=== PATIENT | female | born 1970 | race Caucasian/White ===

== ENCOUNTER → 2017-04-14 | Day surgery (SDC) | payer OTHER ==
[~2017-04-14] VITALS: Ht 175.3 cm; Wt 76.3 kg
[~2017-04-14] MED LIST: AMPH20CA5 PO; CeFAZolin 2 Gm/50 mL D5W Duplex Bag IV ONE; CeFAZolin Inj 2 GM in IV Premix 1 EACH IV ONE; FLUT16SP NS; HYDR-4003 PO; KETO120S3 TP; Lactated Ringer's 1,000 ML IV ONE; Lactated Ringer's 1,000 ML IV SCH; ONDA-53 PO; TRAZ-115 PO
[2017-04-14 14:48] VITALS: BP 124/82; PULSE 88; RESP 16; O2SAT 96
[2017-04-14] MEDS: fentaNYL-PF 50 mCg/mL 2 mL Inj ONE ×4 (15:41→17:30)
== END | disposition home or self-care (01) ==
LOC: SAS 14:23
PROVIDERS: ATTEND Orthopaedic Surgery
DX: S52.571A Other intraarticular fracture of lower end of right radius, initial encounter for closed fracture (principal); Z53.8 Procedure and treatment not carried out for other reasons
CPT/HCPCS: J3010; J7120

== ENCOUNTER → 2017-04-15 | Day surgery (SDC) | payer OTHER ==
[2017-04-15] VITALS (14 sets, daily range): BP systolic 86–136; BP diastolic 43–95; PULSE 57–91; RESP 9–16; O2SAT 91–100
[~2017-04-15] VITALS: Ht 175.3 cm; Wt 76.3 kg
[~2017-04-15] MED LIST changes: +Atropine 0.4 mg/mL Inj IVPUSH PRN; +Bupivacaine-MPF 0.5% 30 mL Inj INFILTRATE ONE; -CeFAZolin Inj 2 GM in IV Premix 1 EACH IV ONE; +Dexamethasone 4 mg/mL Inj ONE; +EPHEDrine Sulfate 50 mg/mL Inj IVPUSH PRN; +Glycopyrrolate 0.2 MG/ML 1mL Inj ONE; +HYDROmorphone 1 mg/mL Inj IVPUSH PRN; +HYDROmorphone 1 mg/mL Inj ONE; +Labetalol 5 mg/mL 20 mL Inj IV PRN; +Lactated Ringer's 500 ML IV PRN; +MetoCLOpramide 5 mg/mL 2 mL Inj IVPUSH PRN; +MetoCLOpramide 5 mg/mL 2 mL Inj ONE; +Neostigmine 1 mg/mL 10 mL Inj ONE; +Ondansetron 2 mg/mL 2 mL Inj IVPUSH PRN; +Ondansetron 2 mg/mL 2 mL Inj ONE; +Phenylephrine 10,000 mCg/mL Inj IVPUSH PRN; +Phenylephrine 10,000 mCg/mL Inj ONE; +Propofol 10,000 mCg/mL 20 mL Inj ONE; +Rocuronium 10 mg/mL 5 mL Inj ONE; +fentaNYL-PF 50 mCg/mL 2 mL Inj IVPUSH PRN; +fentaNYL-PF 50 mCg/mL 2 mL Inj ONE; +oxyCODONE-Acetamin 5-325 mg Tablet PO PRN
--- NOTE | 2017-04-15 13:40 | PCM.HPANE ---
Patient Data Surgeon Admitting Provider: Attending Provider:Ted Linares MD Primary Care Physician:Cal Black MD Other Provider:Ethel Jacques Anesthesia Reason for Visit Orif Rt Distal Radius Ht/WT & BMI Height (Feet): 5 Height (Inches): 9 Weight (Kilograms): 76.3 Body Mass Index 24.00 Allergies Coded Allergies: No Known Allergies (Verified , 06/26/04) Past Anesthesia History Anesthesia History: Denies:: Abnormal Airway, Anesthesia Reactions, Difficult Intubation, Fam Anesthesia Reaction (daughter had reaction to ketamine- psychological response), Malignant Hyperthermia Diabetes History Hx Diabetes?: No MRSA MRSA: No Medications Home Meds Incl Beta Nikki: No Reported Medications Trazodone 50 Mg [id number] Mg PO HS Ref 0 04/12/17 Ondansetron 4 Mg Tablet4 Mg PO Q6H PRN For Nausea 04/12/17 Ketoconazole 120 Ml [id number] Ml TP PRN scalp itching 04/12/17 Hydrocodone-Acetaminophen 5-325 mg 1 Each Tablet1 Tablet PO Q6H PRN For Pain Ref 0 04/12/17 Fluticasone Propionate (Fluticasone Propionate Nasal)16 Gm [place].susp1 [place] NS BID #16 GM Ref 0 04/12/17 Dextroamphetamine/Amphetamine ER (Adderall XR)20 Mg [id number] Mg PO DAILY Ref 0 04/12/17 Discontinued Reported Medications Triamcinolone Acet (Triamcinolone Acetonide Cream)1 Applic/0.25 Gm Cr1 Applic EXT BID #60 GM Ref 0 04/12/17 Ciclopirox/Skin Cleanser No.28 (Ciclodan 0.77% Cream Kit)544 Gm Combo..[id number] Gm TP PRN skin irritation 04/12/17 History History of ENT Problems?: Yes HEENT History: Positive for:: Sinus Problem (allergies) Denies:: Abnormal Airway Cataracts Difficult Intubation Dysphagia Hearing Problem TMJ Denture Type: None Teeth Condition: Within Normal Limits Hx of Heart Problems?: No Cardiovascular History: Denies:: AICD Abdominal Aortic Aneurism Atrial Fibrillation Cardiac Surgery Chest Pain Congestive Heart Failure Coronary Artery Disease Edema Heart Murmur Hypertension Irregular Heartbeat Pacemaker Peripheral Vascular Rheumatic Fever Thrombophlebitis Valvular Heart Disease Hx of Respiratory Problem?: No Respiratory History: Denies:: Asthma COPD Emphysema Hemoptysis Oxygen Administration Pneumonia (remote, as child) Pulmonary Embolism Tuberculosis Use of C-PAP Machine Hx Neurologic Problems?: No Neurological History: Denies:: Alzheimer's Disease CVA Headaches Multiple Sclerosis Parkinson's Disease Seizures Hx of GI Problems?: No Hx of Problems?: No Genitourinary History: Denies:: Kidney Stones Urinary Tract Infection HX of Peritoneal Dialysis: No Female Hx: Denies:: Currently Problems with Breasts? Skin History: Denies:: History Skin Disorders? Pressure Ulcers Hx Musculoskeletal Problems?: Yes Musculoskeletal History: Positive for:: Musculoskeletal Trauma (right wrist fx current admission problem DOI 04/10) Denies:: Back Injury Degenerative Joint Joint Replacement Systemic Lupus Hx of Psycho/Social Problems?: Yes Psycho Social History: Denies:: Anxiety Hx Depression Hx Surgeries?: Yes (he foot surgery, appe) Hx Any Other Health Problems?: Yes Other History: Denies:: Cancer Thyroid Disease History Blood Transfusions: Denies:: Blood Transfuse Reaction Blood Transfusions Hx Diabetes: No Hx Alcohol Use: YesHx Substance Use: No Smoking Status: Never Smoker Stop/Bang S-Snoring: Do You Snore Loudly: No T-Tired: feel tired, fatigued: No O-Obsered: Observed not breath: No P-Blood Pressure: treated: No B- Body Mass Index > 35 kg/m2: No A- Age over 50: No N- Neck Large Circumference: No G- Gender Male: No MALENA Total Score: 0 Risk Assessment Category Category 1A: Patient has history of documented sleep apnea, and HAS NOT received any narcotic, sedative or anesthesia administration during this stay. Category 1B: Patient has history of documented sleep apnea, and HAS received any narcotic , sedative or anesthesia administration during this stay Category 2: Patient has SUSPECTED Obstructive Sleep Apnea, and HAS received any narcotic , sedative or anesthesia administration during this stay. Category 3: Patient has SUSPECTED Obstructive Sleep Apnea and HAS NOT received narcotic, sedative or anesthesia administration during this stay. Category 4: Outpatient in Procedural Areas with known sleep apnea or who screen positive for High Risk via the STOP/BANG questionnaire. Exam Exam Vital Signs Vital Signs Date Time Temp Pulse Resp B/P Pulse Ox O2 Delivery O2 Flow Rate FiO2 04/15/17 12:10 36.5 91 16 136/95 99 Room Air General Appearance: Alert, Oriented X3, Cooperative, No Acute Distress HEENT/AIRWAY: MP 2, Neck Movement (FROM), Mouth Opening (3 FBMO) Lungs: Clear to Auscultation, Normal Air Movement Heart: Exam Unremarkable, Regular Rate/Rhythm, No Murmurs/Rubs/Gallops Meds/Labs/Diagnostics Admission Meds Current Medications Lactated Ringer's (Lr) 1,000 ml @ ud STK-MED ONCE IV Last administered on t 12:03; Start 04/15/17 at 12:03; Stop 04/15/17 at 12:04; Status DC Plan Impression Patient chart reviewed, patient interviewed and anesthestic plan with risks, benefits, and alternatives discussed, and informed consent obtained. NPO per Anesth. Guidelines: Yes ASA Physical Status: ASA2 Mod Systemic Disease Anesthetic Plan: GA, Regional Block (Consented for postoperative rescue right arm block if necessary. Risks of block discussed. AQA. Consent signed.) Bene/Risks/Altern/Consents: Yes HP Complete Prior to Induction: Yes Phil Villeda MD Apr 15, 2017 13:04
--- NOTE | 2017-04-15 16:39 | PCM.ANEP1 ---
Post Anesthesia PACU Phase 1 Assessment Vital Signs Vital Signs Date Time Temp Pulse Resp B/P Pulse Ox O2 Delivery O2 Flow Rate FiO2 04/15/17 16:20 71 9 130/82 93 Room Air 04/15/17 16:10 74 13 136/80 93 Room Air 04/15/17 16:00 82 15 120/85 100 Simple Mask 10 04/15/17 15:55 74 10 131/85 95 Simple Mask 10 04/15/17 15:50 82 12 101/73 100 Simple Mask 10 04/15/17 15:45 36.3 86 9 119/86 100 Simple Mask 10 04/15/17 12:10 36.5 91 16 136/95 99 Room Air Anesthetic Administered: GA Level of Alertness: Awake, talking SEVILLA's with Equal Strength: Yes Pain: Yes (10/10 pain - rescue right supraclavicular block performed) Pain Scale Score: 10 (pain quickly subsided after right supraclavicular block) Nausea or Vomiting: No CV Function & Hydration Stable: Yes Airway Device: n/a Oxygen Delivery: Room Air Lungs: Clear to Auscultation, Normal Air Movement Dermatome Level: Full Sensation PACU Phase 2 Assessment Complications: No Follow up Care: N/A Patient Instructions Provided: N/A Phil Villeda MD Apr 15, 2017 16:39
--- NOTE | 2017-04-15 16:59 | DRSVH ---
PROCEDURE: X-RAY RIGHT WRIST COMPLETE, MINIMUM THREE VIEWS ([id number]) INDICATIONS: POST-OP TECHNIQUE: 4 views of the wrist were acquired. COMPARISON: [facility], CR, XR WRIST 3VW RT, 04/10/2017, 14:41. FINDINGS: Bones: Open reduction and internal fixation of distal radial metaphyseal fracture. Alignment is near anatomic. No suspicious bony lesions. Soft tissues: No suspicious soft tissue calcifications. IMPRESSION: Open reduction and internal fixation of distal radial metaphyseal fracture. Dictated by: Cassandra Mike M.D. on 04/15/2017 at 16:56 Approved by: Cassandra Mike M.D. on 04/15/2017 at 16:57
--- NOTE | 2017-04-15 19:04 | OP ---
[address] [address] OPERATIVE REPORT PATIENT: TADEO TURNER : 1970 MR#: [id number] ADMIT: 04/15/2017 JOB ID: [id number] DATE OF SURGERY: 04/15/2017 PREOPERATIVE DIAGNOSIS(ES): Comminuted right distal radial intra-articular fracture with three or more fragments and ulnar styloid fracture. ICD 10 code S52.571A. POSTOPERATIVE DIAGNOSIS(ES): Comminuted right distal radial intra-articular fracture with three or more fragments and ulnar styloid fracture. ICD 10 code S52.571A. PROCEDURE: Open reduction and internal fixation, comminuted right distal radial intra-articular fracture with three or more fragments, and closed treatment of ulnar styloid fracture. CPT code 14306. SURGEON: Ted Linares MD. PAYROLL PROFESSIONAL: Sagar Ariza PA-C. Sagar Ariza was an integral portion of the procedure helping to obtain and maintain reduction and retraction during the procedure. ANESTHESIA: General, as well as postoperative regional block for postoperative analgesia by Anesthesiology. ESTIMATED BLOOD LOSS: 5 mL. DRAINS: None. COMPLICATIONS: None. IMPLANTS UTILIZED: Synthes 2.4 mm locked distal radial volar plate. Sponge and needle count correct. No complications. INDICATIONS: This is a 46-year-old female who was roller skating this past week. Fell on her outstretched right upper extremity and sustained a comminuted right distal radial intra-articular fracture and ulnar styloid fracture. PROCEDURE: Under adequate general anesthetic, a well-padded tourniquet was applied to the right upper extremity. The right arm was prepped and draped in sterile fashion. After appropriate time-out was called, the right arm was elevated, exsanguinated, tourniquet inflated to 250 mmHg. A curvilinear incision was fashioned over the volar aspect of the distal radius just radial to the flexor carpi radialis. Care was taken to protect surrounding neurovascular structures. The volar fascia was incised just radial to the flexor carpi radialis. The flexor pollicis longus tendon was retracted in an ulnar fashion. The pronator quadratus was elevated off the distal radius sharply. The fracture was exposed. [place] elevator was placed into the fracture and manipulated and reduced. A Synthes 2.4 mm locked distal radial regular size plate was utilized, three holes in the shaft. It was temporarily transfixed to the distal radius with K-wires. A nonlocking screw was drilled and filled and placed in the shaft. Minor adjustment was required readjusting the K-wires and placing the plate slightly more distal. Once this was performed, another K-wire was placed to help control rotation of the plate. Attention was next turned to the distal screws. The first screw was placed utilizing a nonlocking screw to help compress the plate to the bone. Plan was to change that screw at the end to a locking screw. Additional distal screws were drilled and filled with locking screws. The two proximal remaining shaft screw holes were drilled and filled with locking screws. The K-wire that was also helping stabilize the plate was subsequently removed. The remaining distal screw holes were drilled and filled with locking screws. Image intensification confirmed good position of the screws. The initial nonlocking screw that was placed was changed to a locking screw once the plate had been compressed to the bone. Image intensification confirmed good position of the plate and screws. The wounds were irrigated with antibiotic solution. The pronator quadratus was repaired over the plate with some interrupted sutures of 3-0 Vicryl. Tourniquet was then released and some 0.5% plain Marcaine was placed in the wound. Subcutaneous layers were closed with interrupted sutures of 4-0 Monocryl and skin was reapproximated with running subcuticular suture of 4-0 Monocryl. Mastisol and Steri-Strips were applied. Xeroform dry sterile dressings were applied. The patient was placed in a well-padded volar fiberglass splint. The patient was taken to recovery room in stable condition. Sponge and needle count correct. No complications. PLAN: The patient will be seen back in the office in two weeks for Steri-Strip removal and to cut the Monocryl Vicryl sutures flush with the skin. The patient may also have x-rays performed at that time. There should be enough stability to allow gentle range of motion of the wrist with the removal of Velcro splint. The patient should not be doing any lifting or gripping. She should also be encouraged to do range of motion of her fingers starting immediately. She was given a regional block postoperatively to assist with pain management. The patient needs to be cautious with that arm until the block wears off. She was discharged to home on Percocet 10/325, Vistaril 25, and Keflex 500 mg. CC: [facility]
--- NOTE | 2017-04-16 10:03 | DRSVH ---
PROCEDURE: X-RAY FLUORO MINI C-ARM IN SURGERY INDICATIONS: RIGHT WRIST INTRAOPERATIVE IMAGES COMPARISON: [facility], CR, XR WRIST 3VW RT, 04/10/2017, 14:41. FINDINGS: Intraoperative C-arm images demonstrate improved alignment status post ORIF of comminuted distal radial metaphyseal fracture. Fixation plate and associated screws have been placed. IMPRESSION: Improved alignment status post ORIF. Dictated by: Fidel ORTA Interpreted: Ana Perrin MD on 04/15/2017 at 15:50 Approved by: Ana Perrin M.D. on 04/16/2017 at 10:02
== END | disposition home or self-care (01) ==
LOC: SAS 11:58
PROVIDERS: ATTEND Orthopaedic Surgery
DX: S52.571A Other intraarticular fracture of lower end of right radius, initial encounter for closed fracture (principal); J30.2 Other seasonal allergic rhinitis; X58.XXXA Exposure to other specified factors, initial encounter; Y93.51 Activity, roller skating (inline) and skateboarding; Y92.410 Unspecified street and highway as the place of occurrence of the external cause; Y99.9 Unspecified external cause status; Y93.9 Activity, unspecified; Z79.899 Other long term (current) drug therapy